=== PATIENT | male | born 1975 | race Caucasian/White ===

== ENCOUNTER 2021-11-18 11:39 | Outpatient (CLI) | payer OTHER, SELFPAY ==
[2021-11-18 14:05] LABS: Chloride* 101 mmol/L (96-114); Potassium* 3.5 mmol/L (3.6-5.1); Sodium* 138 mmol/L (135-149)
[2021-11-18 14:07] LABS: Cholesterol* 211 mg/dL (90-199)
[2021-11-18 14:08] LABS: Blood Urea Nitrogen* 13 mg/dL (5-24); Calcium* 9.7 mg/dL (8.4-10.6); Carbon Dioxide* 30 mmol/L (20-32); Creatinine* 0.6 mg/dL (0.5-1.5); Estimated Glomerular Filt Rate 121 ml/min; Glucose* 92 mg/dL (60-115); Triglycerides* 365 mg/dL (40-149)
[2021-11-18 14:09] LABS: HDL Cholesterol* 44 mg/dL (>=40); LDL Cholesterol Calculated 94 mg/dL (<100)
== END 2021-11-18 11:40 | disposition home or self-care (01) ==
PROVIDERS: PCP Family Medicine; Visit Provider Family Medicine
DX: E11.40 Type 2 diabetes mellitus with diabetic neuropathy, unspecified (principal); I10 Essential (primary) hypertension; E78.5 Hyperlipidemia, unspecified; M10.9 Gout, unspecified; E66.01 Morbid (severe) obesity due to excess calories
CPT/HCPCS: 80048; 80061

== ENCOUNTER 2022-11-24 16:29 | Outpatient (CLI) | payer OTHER, SELFPAY | END 2022-11-24 16:30 | disposition home or self-care (01) | LOC: NFLDREF 16:30 | PROVIDERS: PCP Family Medicine; Visit Provider Family Medicine | DX: E78.5 Hyperlipidemia, unspecified (principal); I10 Essential (primary) hypertension | CPT/HCPCS: 80048; 80061 ==

== ENCOUNTER 2023-01-27 06:52 | Inpatient (IN) | payer OTHER, SELFPAY ==
[2023-01-27] VITALS (17 sets, daily range): BP systolic 126–161; BP diastolic 82–100; PULSE 87–106; RESP 16–20; TEMP 36.2–36.4; O2SAT 92–98; BMI 34.9; BMI 34.1
--- NOTE | 2023-01-27 07:03 | CRLHL7_ITS ---
For Patients: As a result of the Century Cures Act, medical imaging exams and procedure reports are released immediately into your electronic medical record. You may view this report before your referring provider. If you have questions, please contact your health care provider. INDICATION: Right leg pain and swelling. History of hypercoagulable state. TECHNIQUE: Ultrasound venous duplex lower right extremity. Compression venous exam was performed using quintanilla-scale, color Doppler, and spectral Doppler analysis. COMPARISON: None. FINDINGS: Noncompressible echogenic nonocclusive right common femoral vein DVT. Non expansile noncompressible echogenic deep femoral vein DVT. Non expansile noncompressible occlusive proximal, mid and distal superficial femoral vein DVT. Echogenic non expansile nonocclusive popliteal vein DVT. Posterior tibial, peroneal and gastrocnemius deep muscular vein below the knee DVT. The contralateral left common femoral vein is patent. IMPRESSION: Extensive chronic appearing right lower extremity DVT described above. Dictated by Narciso Marie MD @ 01/27/2023 9:07:41 AM (Electronically Signed)
--- NOTE | 2023-01-27 07:43 | ED.GENADULT ---
HPI - General Adult General Chief complaint: Lower Extremity Swelling <Celestino Armstrong MD - Last Filed: 01/29/23 12:48> Stated complaint: right leg painful and swollen <Celestino Armstrong MD - Last Filed: 01/29/23 12:48> Time Seen by Provider: 01/27/23 06:59 <Celestino Armstrong MD - Last Filed: 01/29/23 12:48> History of Present Illness HPI narrative: Patient is a 47-year-old gentleman with history of factor 5 Leiden mutation and multiple blood clots the past who presents with a painful swollen right leg. He has noticed swelling for last 24 hours but it worsened overnight as patient was working. He has had no recent trauma. The pain is dull and located with the swelling inferior to the right knee in the calf. He has had no bruising or bleeding. He has had no cough or shortness of breath. No nausea no vomiting no weakness. Patient is not on blood thinners but does take aspirin 81 mg daily. <Celestino Armstrong MD - Last Filed: 01/29/23 12:48> Related Data Home medications: Home Medications Medication Instructions Recorded Confirmed aspirin 81 mg tablet,delayed 81 mg PO QDAY 11/24/22 01/27/23 release (Adult Aspirin Regimen) insulin glargine 100 unit/mL (3 70 unit subcut HS 01/27/23 01/27/23 mL) subcutaneous pen insulin lispro 100 unit/mL 10 - 30 unit subcut TIDWMEAL 01/27/23 01/27/23 subcutaneous pen Previous Rx's Medication Instructions Recorded flash glucose scanning reader #1 ea 11/14/21 (FreeStyle Yeison 14 Day Clyde) flash glucose sensor (FreeStyle #6 ea 12/27/21 Yeison 14 Day Sensor kit) pen needle, diabetic 32 gauge x #300 ea 11/06/22 (BD Ultra-Fine Sheba Pen Needle) blood-glucose sensor (Dexcom G7 #3 ea 11/24/22 Sensor device) lisinopril 20 1 tab PO DAILY #90 tabs 11/24/22 mg-hydrochlorothiazide 12.5 mg tablet clotrimazole-betamethasone 1 1 applic topical BID #45 grams 12/13/22 %-0.05 % topical cream <Celestino Armstrong MD - Last Filed: 01/29/23 12:48> Allergies/adverse reactions: Allergies Allergy/AdvReac Type Severity Reaction Status Date / Time No Known Drug Allergies Allergy Verified 01/27/23 06:56 <Celestino Armstrong MD - Last Filed: 01/29/23 12:48> Review of Systems Status of ROS: Reports: 10 or more systems reviewed and unremarkable except as noted in History and below <Celestino Armstrong MD - Last Filed: 01/29/23 12:48> [facility] Medical History: Medical History (Updated 01/27/23 @ 20:42 by Manjinder De La Torre MD) Pulmonary embolism ?I26.99 - Other pulmonary embolism without acute cor pulmonale (ICD-10) DVT (deep venous thrombosis) ?I82.409 - Acute embolism and thrombosis of unspecified deep veins of unspecified lower extremity (ICD-10) Type 2 diabetes mellitus (2012) ?E11.9 - Type 2 diabetes mellitus without complications (ICD-10) Rupture of appendix (02/2019) ?K35.32 - Acute appendicitis with perforation and localized peritonitis, without abscess (ICD-10) Obstructive sleep apnea syndrome ?G47.33 - Obstructive sleep apnea (adult) (pediatric) (ICD-10) Morbid obesity with body mass index (BMI) of 40.0 to 44.9 in adult ?E66.01 - Morbid (severe) obesity due to excess calories (ICD-10) ?Z68.41 - Body mass index [BMI] 40.0-44.9, adult (ICD-10) Microalbuminuria ?R80.9 - Proteinuria, unspecified (ICD-10) Hypertension ?I10 - Essential (primary) hypertension (ICD-10) Hyperlipidemia ?E78.5 - Hyperlipidemia, unspecified (ICD-10) Gout ?M10.9 - Gout, unspecified (ICD-10) Gastroesophageal reflux disease (08/30/12) ?K21.9 - Gastro-esophageal reflux disease without esophagitis (ICD-10) Factor V Leiden mutation (12/30/09) ?D68.51 - Activated protein C resistance (ICD-10) Diabetic neuropathy ?E11.40 - Type 2 diabetes mellitus with diabetic neuropathy, unspecified (ICD-10) Deep vein thrombosis (DVT) of lower extremity (12/21/09) ?I82.409 - Acute embolism and thrombosis of unspecified deep veins of unspecified lower extremity (ICD-10) <Celestino Armstrong MD - Last Filed: 01/29/23 12:48> Surgical History: Surgical History (Updated 01/27/23 @ 17:20 by Bernardo Magdaleno MD) History of appendectomy ?Z90.49 - Acquired absence of other specified parts of digestive tract (ICD-10) <Celestino Armstrong MD - Last Filed: 01/29/23 12:48> Family History: Family History Family/Other Stroke Family/Other Prostate cancer Mother Diabetes Maternal Grandmother Diabetes <Celestino Armstrong MD - Last Filed: 01/29/23 12:48> Social History: Social History (Updated 01/27/23 @ 17:21 by Bernardo Magdaleno MD) Narrative: , 3 kids, non-smoker, rare alcohol use. 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 Code status is full. What is your current living situation?: I presently have a place to live Problems where you live: no known problems Problems where you live details: NO In the past 12 months, utilities in danger of being shut off: no In past 12 months, lack of transportation kept you from medical appts, meetings, work, or getting things needed for daily living: no In the past 12 mos, have been you worried that your food would run out before you had money to buy more?: never true In the past 12 mos, the food you bought just didn't last and you didn't have money to buy more?: never true Highest level of school completed/degree received: high school graduate Smoking Status: Never smoker How often do you have a drink containing alcohol: monthly or less AUDIT-C Alcohol total score: 1 Non-prescribed substance use: denies use Caffeine: Yes How often does anyone, including family, friends and others, physically hurt you: never How often does anyone, including family, friends and others, insult or talk down to you: never How often does anyone, including family, friends and others, threaten you with harm: never How often does anyone, including family, friends and others, scream or curse at you: never Little interest or pleasure in doing things: not at all Feeling down, depressed, or hopeless: not at all service: No <Celestino Armstrong MD - Last Filed: 01/29/23 12:48> Exam Narrative: Exam Narrative: EXAM GENERAL: Patient appears comfortable and well. THYROID: no thyroid nodules or thyromegaly. LYMPH: No supraclavicular or cervical lymphadenopathy. SKIN: Visible skin seen during exam normal or with benign process only. EXT: Mild erythema as well as significant swelling in the right lower extremity extending from the ankle to just above the right knee. No skin breakdown. HEART: Regular rate and rhythm with no murmurs, rubs, or gallops. LUNGS: Clear to auscultation bilaterally with no crackles or wheezes. ABD: Soft, non tender, non distended. PSYCH: Good eye contact, speech is not pressured. <Celestino Armstrong MD - Last Filed: 01/29/23 12:48> Const: Vital Signs, click to edit/add: Vital Signs - 24 hr 01/27/23 06:56 01/27/23 08:59 01/27/23 11:09 Temperature 97.6 F Pulse Rate 95 Pulse Rate [Pulse Oximeter] 103 H 97 Respiratory Rate 20 16 Blood Pressure Blood Pressure [Ri ght Upper Arm] 159/93 H 132/82 Pulse Oximetry 96 95 97 Oxygen Delivery Me thod Room Air Room Air 01/27/23 11:10 01/27/23 11:30 01/27/23 11:32 Temperature Pulse Rate 95 105 H 102 H Pulse Rate [Pulse Oximeter] Respiratory Rate Blood Pressure 139/92 H 161/100 H Blood Pressure [Ri ght Upper Arm] Pulse Oximetry 96 94 96 Oxygen Delivery Me thod 01/27/23 11:33 01/27/23 12:00 01/27/23 12:02 Temperature Pulse Rate 103 H 96 97 Pulse Rate [Pulse Oximeter] Respiratory Rate Blood Pressure 144/93 H Blood Pressure [Ri ght Upper Arm] Pulse Oximetry 96 95 95 Oxygen Delivery Me thod 01/27/23 12:30 01/27/23 12:31 01/27/23 13:00 Temperature Pulse Rate 96 94 104 H Pulse Rate [Pulse Oximeter] Respiratory Rate Blood Pressure 135/90 H Blood Pressure [Ri ght Upper Arm] Pulse Oximetry 94 92 95 Oxygen Delivery Me thod 01/27/23 13:02 Temperature Pulse Rate 106 H Pulse Rate [Pulse Oximeter] Respiratory Rate Blood Pressure 131/97 H Blood Pressure [Ri ght Upper Arm] Pulse Oximetry 96 Oxygen Delivery Me thod <Celestino Armstrong MD - Last Filed: 01/29/23 12:48> Vital Signs, click to edit/add: Vital Signs - 24 hr 01/27/23 06:56 01/27/23 08:59 01/27/23 11:09 Temperature 97.6 F Pulse Rate 95 Pulse Rate [Pulse Oximeter] 103 H 97 Respiratory Rate 20 16 Blood Pressure Blood Pressure [Ri ght Upper Arm] 159/93 H 132/82 Pulse Oximetry 96 95 97 Oxygen Delivery Me thod Room Air Room Air 01/27/23 11:10 01/27/23 11:30 01/27/23 11:32 Temperature Pulse Rate 95 105 H 102 H Pulse Rate [Pulse Oximeter] Respiratory Rate Blood Pressure 139/92 H 161/100 H Blood Pressure [Ri ght Upper Arm] Pulse Oximetry 96 94 96 Oxygen Delivery Me thod 01/27/23 11:33 01/27/23 12:00 01/27/23 12:02 Temperature Pulse Rate 103 H 96 97 Pulse Rate [Pulse Oximeter] Respiratory Rate Blood Pressure 144/93 H Blood Pressure [Ri ght Upper Arm] Pulse Oximetry 96 95 95 Oxygen Delivery Me thod 01/27/23 12:30 01/27/23 12:31 01/27/23 13:00 Temperature Pulse Rate 96 94 104 H Pulse Rate [Pulse Oximeter] Respiratory Rate Blood Pressure 135/90 H Blood Pressure [Ri ght Upper Arm] Pulse Oximetry 94 92 95 Oxygen Delivery Me thod 01/27/23 13:02 Temperature Pulse Rate 106 H Pulse Rate [Pulse Oximeter] Respiratory Rate Blood Pressure 131/97 H Blood Pressure [Ri ght Upper Arm] Pulse Oximetry 96 Oxygen Delivery Me thod <Manjinder De La Torre MD - Last Filed: 01/27/23 20:43> Course Course ED Course: Patient seen examined. Duplex of the right lower extremity ordered. <Celestino Armstrong MD - Last Filed: 01/29/23 12:48> Reevaluation(s) Reevaluation #1: Dr. De La Torre assumed care of this patient at 8:00 a.m. -shift change. Patient is a 47-year-old male with a history of factor 5 Leiden and multiple previous blood clots. He presents with painful swelling of his right lower leg. Recurrent DVT is suspected. Lower extremity ultrasound has been ordered and is pending at the time of sign-out. Low suspicion for cellulitis, infection, abscess. No evidence for neurovascular compromise. No history of trauma to require x-rays. <Manjinder De La Torre MD - Last Filed: 01/27/23 20:43> Reevaluation #2: Recheck-DVT ultrasound does confirm an extensive DVT in the right leg that extends all the way from the proximal and the visualized leg down through the calf. I re-evaluated the patient. He was having some swelling the leg but was neurovascularly intact. Really not having a lot of pain. He also endorsed some shortness of breath for the past few days. We elected to go ahead with CT scan of his lungs to look for PE with also CT abdomen pelvis to determine the proximal extent of his right lower extremity DVT. <Manjinder De La Torre MD - Last Filed: 01/27/23 20:43> Reevaluation #3: Recheck-CT scan does confirm bilateral pulmonary emboli with a moderate clot burden as per discussion with Radiology. At this point his blood pressure and oxygen are stable. This is not a ?massive? PE. No indication for thrombolytics. Will initiate anticoagulation with heparin. <Manjinder De La Torre MD - Last Filed: 01/27/23 20:43> Additional Reevaluation(s): Recheck-CT scan abdomen pelvis came back. It does show evidence that the right lower extremity DVT extends into the right common iliac vein but not into the IVC or down the left. Discussed with interventional Radiology, Dr. Maxine reaves from [facility]. He reviewed the patient's imaging. At this point no indication for emergent thrombectomy for the PE but there may be indication for thrombectomy for the DVT given its extent, to avoid post thrombotic syndrome. He would agree with heparinization for now and transferred to [place] when a bed is available. If he can be transferred intervention Radiology would consult to determine if he would benefit from thrombectomy. Unfortunately there are no open beds at [facility]. He has been placed on the wait list. We also contacted other facilities including [facility], [facility], [facility], [facility], [facility] There are no open beds. Will initiate the patient on heparin bolus and drip here in the ER. Will admit the patient to the hospitalist service here in [place] where he can be medically managed until a bed opens up at [place]. At that time he will be transferred for IR consultation. Discussed with Dr. Ruth, who graciously agrees to admit. Clinical impression: 1. Right lower extremity DVT 2. Pulmonary embolism 3. Factor 5 Leiden <Manjinder De La Torre MD - Last Filed: 01/27/23 20:43> Vital Signs Vital signs: Initial Vital Signs Temperature 97.6 F 01/27/23 06:56 Temperature Source Temporal Artery Scan 01/27/23 06:56 Pulse Rate 103 H 01/27/23 06:56 Respiratory Rate 20 01/27/23 06:56 Blood Pressure 159/93 H 01/27/23 06:56 Blood Pressure Mean 115 H 01/27/23 06:56 Pulse Oximetry 96 01/27/23 06:56 Oxygen Delivery Method Room Air 01/27/23 06:56 Vital Signs Temperature 97.6 F 01/27/23 06:56 Pulse Rate 103 H 01/27/23 06:56 Respiratory Rate 20 01/27/23 06:56 Blood Pressure 159/93 H 01/27/23 06:56 Pulse Oximetry 96 01/27/23 06:56 Oxygen Delivery Method Room Air 01/27/23 06:56 Temperature 97.1 F L 01/27/23 19:00 Pulse Rate 87 01/27/23 19:00 Respiratory Rate 16 01/27/23 19:00 Blood Pressure 126/83 01/27/23 19:00 Pulse Oximetry 94 01/27/23 19:00 Oxygen Delivery Method Room Air 01/27/23 15:35 <Celestino Armstrong MD - Last Filed: 01/29/23 12:48> Initial Vital Signs Temperature 97.6 F 01/27/23 06:56 Temperature Source Temporal Artery Scan 01/27/23 06:56 Pulse Rate 103 H 01/27/23 06:56 Respiratory Rate 20 01/27/23 06:56 Blood Pressure 159/93 H 01/27/23 06:56 Blood Pressure Mean 115 H 01/27/23 06:56 Pulse Oximetry 96 01/27/23 06:56 Oxygen Delivery Method Room Air 01/27/23 06:56 Vital Signs Temperature 97.6 F 01/27/23 06:56 Pulse Rate 103 H 01/27/23 06:56 Respiratory Rate 20 01/27/23 06:56 Blood Pressure 159/93 H 01/27/23 06:56 Pulse Oximetry 96 01/27/23 06:56 Oxygen Delivery Method Room Air 01/27/23 06:56 Temperature 97.1 F L 01/27/23 19:00 Pulse Rate 87 01/27/23 19:00 Respiratory Rate 16 01/27/23 19:00 Blood Pressure 126/83 01/27/23 19:00 Pulse Oximetry 94 01/27/23 19:00 Oxygen Delivery Method Room Air 01/27/23 15:35 <Manjinder De La Torre MD - Last Filed: 01/27/23 20:43> Medical Decision Making Lab Data Labs: Lab Results 01/27/23 01/27/23 Range/Units 09:50 09:55 WBC 9.87 (4.50-11.00) K/uL RBC 5.42 (4.30-5.90) m/uL Hgb 15.1 (13.5-17.5) gm/dL Hct 43.8 (37.0-53.0) % MCV 81 (80-100) fL MCH 28 (26-34) pg MCHC 35 (32-36) gm/dL RDW Coeff of Joslyn 12.0 (11.5-15.5) % Plt Count 187 (140-440) K/uL Neut % (Auto) 50.1 (42.0-72.0) % Lymph % (Auto) 33.8 (20-44) % Bradley % (Auto) 8.0 (0.0-11.0) % Eos % (Auto) 7.4 H (0.0-7.0) % Baso % (Auto) 0.4 (0.0-3.0) % Neut # (Auto) 4.94 (1.7-7.0) K/uL Lymph # (Auto) 3.34 H (0.90-2.90) K/uL Bradley # (Auto) 0.80 (0.00-0.90) K/UL Eos # (Auto) 0.70 H (0.00-0.50) K/uL Baso # (Auto) 0.04 (0.00-0.30) K/uL Abs Immat Gran (auto) 0.03 (0.00-0.30) K/uL Imm/Tot Granulo (auto) 0.3 % INR 0.99 (0.91-1.10) APTT 23 (23-33) Seconds Sodium 134 L (135-149) mmol/L Potassium 4.8 (3.6-5.1) mmol/L Chloride 94 L (96-114) mmol/L Carbon Dioxide 27 (20-32) mmol/L Anion Gap 13 (7-15) mEq/L BUN 25 H (5-24) mg/dL Creatinine 0.7 (0.5-1.5) mg/dL Estimated Creat Clear 151.68 Estimated GFR 114 ml/min Glucose 331 H (60-115) mg/dL Calcium 9.4 (8.4-10.6) mg/dL Troponin I < 0.01 L (0.01-0.04) ng/mL SARS-CoV-2 (PCR) Negative SARS-CoV-2 (Negative) Influenza Type A (PCR) Negative PCR FLU A (Negative) Influenza Type B (PCR) Negative PCR FLU B (Negative) RSV (PCR) Negative PCR RSV (Negative) <Celestino Armstrong MD - Last Filed: 01/29/23 12:48> Lab Results 01/27/23 01/27/23 Range/Units 09:50 09:55 WBC 9.87 (4.50-11.00) K/uL RBC 5.42 (4.30-5.90) m/uL Hgb 15.1 (13.5-17.5) gm/dL Hct 43.8 (37.0-53.0) % MCV 81 (80-100) fL MCH 28 (26-34) pg MCHC 35 (32-36) gm/dL RDW Coeff of Joslyn 12.0 (11.5-15.5) % Plt Count 187 (140-440) K/uL Neut % (Auto) 50.1 (42.0-72.0) % Lymph % (Auto) 33.8 (20-44) % Bradley % (Auto) 8.0 (0.0-11.0) % Eos % (Auto) 7.4 H (0.0-7.0) % Baso % (Auto) 0.4 (0.0-3.0) % Neut # (Auto) 4.94 (1.7-7.0) K/uL Lymph # (Auto) 3.34 H (0.90-2.90) K/uL Bradley # (Auto) 0.80 (0.00-0.90) K/UL Eos # (Auto) 0.70 H (0.00-0.50) K/uL Baso # (Auto) 0.04 (0.00-0.30) K/uL Abs Immat Gran (auto) 0.03 (0.00-0.30) K/uL Imm/Tot Granulo (auto) 0.3 % INR 0.99 (0.91-1.10) APTT 23 (23-33) Seconds Sodium 134 L (135-149) mmol/L Potassium 4.8 (3.6-5.1) mmol/L Chloride 94 L (96-114) mmol/L Carbon Dioxide 27 (20-32) mmol/L Anion Gap 13 (7-15) mEq/L BUN 25 H (5-24) mg/dL Creatinine 0.7 (0.5-1.5) mg/dL Estimated Creat Clear 151.68 Estimated GFR 114 ml/min Glucose 331 H (60-115) mg/dL Calcium 9.4 (8.4-10.6) mg/dL Troponin I < 0.01 L (0.01-0.04) ng/mL SARS-CoV-2 (PCR) Negative SARS-CoV-2 (Negative) Influenza Type A (PCR) Negative PCR FLU A (Negative) Influenza Type B (PCR) Negative PCR FLU B (Negative) RSV (PCR) Negative PCR RSV (Negative) <Manjinder De La Torre MD - Last Filed: 01/27/23 20:43> Discharge Plan Discharge Clinical Impression: DVT (deep venous thrombosis), Pulmonary embolism <Celestino Armstrong MD - Last Filed: 01/29/23 12:48> Oxygen: No <Celestino Armstrong MD - Last Filed: 01/29/23 12:48> No <Manjinder De La Torre MD - Last Filed: 01/27/23 20:43>
--- NOTE | 2023-01-27 09:31 | CRLHL7_ITS ---
For Patients: As a result of the Century Cures Act, medical imaging exams and procedure reports are released immediately into your electronic medical record. You may view this report before your referring provider. If you have questions, please contact your health care provider. INDICATION: DVT. Shortness of breath. TECHNIQUE: CT chest PE was acquired with 95 cc Isovue 370 IV contrast. COMPARISON: None. FINDINGS: Heart and vasculature: Positive for bilateral pulmonary arterial emboli including a thin saddle embolus at the bifurcation of the pulmonary trunk with proximal bilateral multilobar multisegmental pulmonary emboli. Normal RV:LV ratio (0.9). No flattening of the interventricular septum to indicate right ventricular strain. Lungs and pleura: No evidence of pulmonary infarct. Benign left upper lobe calcified granuloma. No pleural effusion. Lymph nodes/mediastinum: No mediastinal, hilar, or axillary adenopathy. Chest wall: No masses. Upper abdomen: Please refer to the separate abdominal CT report from the same day. Bones: Unremarkable for age. IMPRESSION: Positive for pulmonary embolism including a nonocclusive saddle embolus and bilateral multilobar multisegmental proximal pulmonary emboli. Moderate clot burden. No signs of right ventricular strain. Discussed with Dr. De La Torre at 10:51 a.m. on 01/27/2023. Please note that all CT scans at this facility use dose modulation, iterative reconstruction, and/or weight-based dosing when appropriate to reduce radiation dose to as low as reasonably achievable. Dictated by Narciso Marie MD @ 01/27/2023 10:55:57 AM (Electronically Signed)
--- NOTE | 2023-01-27 09:31 | CRLHL7_ITS ---
For Patients: As a result of the Century Cures Act, medical imaging exams and procedure reports are released immediately into your electronic medical record. You may view this report before your referring provider. If you have questions, please contact your health care provider. INDICATION: DVT. Shortness of breath. Concern for possible iliac and/or inferior vena cava venous thrombosis. TECHNIQUE: CT abdomen and pelvis acquired with 150 cc Isovue 370 IV contrast. COMPARISON: None. FINDINGS: Lower chest: Right middle lobe proximal multisegmental and bilateral lower lobe proximal multisegmental pulmonary arterial filling defects represent pulmonary emboli as demonstrated on the separate CT pulmonary angiogram performed today. Please refer to that report. Liver: Unremarkable. Normal in size and attenuation. No suspicious masses. Gallbladder and bile ducts: Unremarkable. No stones or inflammation. No biliary dilatation. Pancreas: Unremarkable. No mass or inflammation. Spleen: Unremarkable. Normal in size. No masses. Adrenal glands: Unremarkable. No nodules. Kidneys: Unremarkable. No suspicious masses, stones, or hydronephrosis. Too small to characterize round circumscribed homogeneous hypodense focus in the posterior interpolar left renal cortex consistent with a Bosniak 2 benign renal cysts. GI tract: Unremarkable. Normal in caliber. No sign of mass or inflammation. Appendectomy. Vasculature: Filling defects within the right common iliac, external iliac, common femoral and proximal superficial femoral veins are consistent with DVT. Abdominal aorta is normal in caliber. Mesenteric arteries are patent. Lymph nodes: No lymphadenopathy. Peritoneum/Abdominal Wall: Unremarkable. No sign of mass or infiltration. No free air or significant free fluid. Pelvis: Unremarkable. Bones: Unremarkable for age. IMPRESSION: Right common iliac, external iliac, common femoral and proximal superficial femoral vein DVT. Known bilateral pulmonary emboli. Discussed with Dr. De La Torre at 11 a.m. [employer] on 01/27/2023. Please note that all CT scans at this facility use dose modulation, iterative reconstruction, and/or weight-based dosing when appropriate to reduce radiation dose to as low as reasonably achievable. Dictated by Narciso Marie MD @ 01/27/2023 11:05:41 AM (Electronically Signed)
[2023-01-27 10:03] LABS: Basophils Absolute Auto 0.04 K/uL (0.00-0.30); Basophils Percent Auto 0.4 % (0.0-3.0); Eosinophils Percent Auto 7.4 % (0.0-7.0); Hematocrit 43.8 % (37.0-53.0); Hemoglobin* 15.1 gm/dL (13.5-17.5); Immature Granulocytes Abs Auto 0.03 K/uL (0.00-0.30); Immature Granulocytes Pct Auto 0.3 %; Lymphocytes Absolute Auto 3.34 K/uL (0.90-2.90); Lymphocytes Percent Auto 33.8 % (20-44); Mean Corpuscular HGB Conc 35 gm/dL (32-36); Mean Corpuscular Hemoglobin 28 pg (26-34); Mean Corpuscular Volume 81 fL (80-100); Neutrophils Absolute Auto 4.94 K/uL (1.7-7.0); Neutrophils Percent Auto 50.1 % (42.0-72.0); Platelet Count* 187 K/uL (140-440); Red Blood Count 5.42 m/uL (4.30-5.90); White Blood Count* 9.87 K/uL (4.50-11.00)
[2023-01-27 10:21] LABS: Slide Review Reflex No
[2023-01-27 10:41] LABS: Chloride* 94 mmol/L (96-114); Potassium* 4.8 mmol/L (3.6-5.1); Sodium* 134 mmol/L (135-149)
[2023-01-27 10:43] LABS: INR 0.99 (0.91-1.10); Prothrombin Time 13.7 Seconds
[2023-01-27 10:44] LABS: Anion Gap 13 mEq/L (7-15); Blood Urea Nitrogen* 25 mg/dL (5-24); Calcium* 9.4 mg/dL (8.4-10.6); Carbon Dioxide* 27 mmol/L (20-32); Creatinine* 0.7 mg/dL (0.5-1.5); Est. Creatinine Clearance* 151.68; Estimated Glomerular Filt Rate 114 ml/min; Glucose* 331 mg/dL (60-115)
[2023-01-27 10:44] LABS: PCR FLU A Negative PCR FLU A (Negative); PCR FLU B Negative PCR FLU B (Negative); PCR RSV Negative PCR RSV (Negative)
[2023-01-27 10:56] LABS: Partial Thromboplastin Time* 23 Seconds (23-33)
[2023-01-27 10:58] LABS: SARS PCR* Negative SARS-CoV-2 (Negative)
[2023-01-27] MEDS: HEPARIN 5,000 UNIT/0.5 ML INJ 9900 UNIT IVP (11:19)
[2023-01-27] MEDS: HEPARIN 25,000 UNIT/500 ML BAG 30 UNIT IV (11:23)
[2023-01-27 11:53] LABS: Troponin I* < 0.01 ng/mL (0.01-0.04)
[2023-01-27] MEDS: ACETAMINOPHEN 325 MG TABLET 650 MG PO (17:04)
--- NOTE | 2023-01-27 17:17 | P.IMHP_ITS ---
Hospitalist- H&P: HPI History of Present Illness Date Seen: 01/27/23 Chief complaint: right leg painful and swollen Narrative: Roderick Milian is a 47 year old male with diabetes, hypertension, sleep apnea and previous history of DVT is admitted to the hospital with shortness of breath for 4 or 5 days and 1 day of right leg pain and swelling. Patient reports that he was in his usual state of health until Sunday or Sunday of this week, 4-5 days prior to admission when he noted that he was feeling a little more short of breath. He also had a couple days where he had an upset stomach and a little nonbloody diarrhea. Yesterday he noted right leg pain at work and it was getting worse so he came to the emergency room this morning for evaluation. About a decade ago he had 2 separate episodes of left leg DVT. He was treated with warfarin for about 6 months. It was then stopping is placed on aspirin. He was subsequent the diagnostic with factor 5 Leiden mutation. He is unsure if he has heterozygous or homozygous state. Both his parents have factor 5 Leiden mutation and his mother he is on lifelong anticoagulation. He has not had any chest pain, syncope, fever. Review of Systems Narrative: Review of systems is negative except as noted above [facility] Medical History (Updated 01/27/23 @ 17:27 by Bernardo Magdaleno MD) Pulmonary embolism ?I26.99 - Other pulmonary embolism without acute cor pulmonale (ICD-10) DVT (deep venous thrombosis) ?I82.409 - Acute embolism and thrombosis of unspecified deep veins of unspecified lower extremity (ICD-10) Type 2 diabetes mellitus (2012) ?E11.9 - Type 2 diabetes mellitus without complications (ICD-10) Rupture of appendix (02/2019) ?K35.32 - Acute appendicitis with perforation and localized peritonitis, without abscess (ICD-10) Obstructive sleep apnea syndrome ?G47.33 - Obstructive sleep apnea (adult) (pediatric) (ICD-10) Morbid obesity with body mass index (BMI) of 40.0 to 44.9 in adult ?E66.01 - Morbid (severe) obesity due to excess calories (ICD-10) ?Z68.41 - Body mass index [BMI] 40.0-44.9, adult (ICD-10) Microalbuminuria ?R80.9 - Proteinuria, unspecified (ICD-10) Hypertension ?I10 - Essential (primary) hypertension (ICD-10) Hyperlipidemia ?E78.5 - Hyperlipidemia, unspecified (ICD-10) Gout ?M10.9 - Gout, unspecified (ICD-10) Gastroesophageal reflux disease (08/30/12) ?K21.9 - Gastro-esophageal reflux disease without esophagitis (ICD-10) Factor V Leiden mutation (12/30/09) ?D68.51 - Activated protein C resistance (ICD-10) Diabetic neuropathy ?E11.40 - Type 2 diabetes mellitus with diabetic neuropathy, unspecified (ICD-10) Deep vein thrombosis (DVT) of lower extremity (12/21/09) ?I82.409 - Acute embolism and thrombosis of unspecified deep veins of unspecified lower extremity (ICD-10) Surgical History (Updated 01/27/23 @ 17:20 by Bernardo Magdaleno MD) History of appendectomy ?Z90.49 - Acquired absence of other specified parts of digestive tract (ICD- 10) Family History Family/Other Stroke Family/Other Prostate cancer Mother Diabetes Maternal Grandmother Diabetes Social History (Updated 01/27/23 @ 17:21 by Bernardo Magdaleno MD) Narrative: , 3 kids, non-smoker, rare alcohol use. 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 Code status is full. What is your current living situation?: I presently have a place to live Problems where you live: no known problems Problems where you live details: NO In the past 12 months, utilities in danger of being shut off: no In past 12 months, lack of transportation kept you from medical appts, meetings, work, or getting things needed for daily living: no In the past 12 mos, have been you worried that your food would run out before you had money to buy more?: never true In the past 12 mos, the food you bought just didn't last and you didn't have money to buy more?: never true Highest level of school completed/degree received: high school graduate Smoking Status: Never smoker How often do you have a drink containing alcohol: monthly or less AUDIT-C Alcohol total score: 1 Non-prescribed substance use: denies use Caffeine: Yes How often does anyone, including family, friends and others, physically hurt you : never How often does anyone, including family, friends and others, insult or talk down to you: never How often does anyone, including family, friends and others, threaten you with harm: never How often does anyone, including family, friends and others, scream or curse at you: never Little interest or pleasure in doing things: not at all Feeling down, depressed, or hopeless: not at all service: No Meds Home Medications and Allergies Home Medications Medication Instructions Recorded Confirmed Type aspirin 81 mg tablet,delayed 81 mg PO QDAY 11/24/22 01/27/23 History release (Adult Aspirin Regimen) insulin glargine 100 unit/mL (3 70 unit subcut HS 01/27/23 01/27/23 History mL) subcutaneous pen insulin lispro 100 unit/mL 10 - 30 unit subcut TIDWMEAL 01/27/23 01/27/23 History subcutaneous pen Allergies Allergy/AdvReac Type Severity Reaction Status Date / Time No Known Drug Allergies Allergy Verified 01/27/23 06:56 Exam Narrative: Exam Narrative: He is alert and appears in no distress. He gives his own history. Eyes normal. Oropharynx with small airway. Neck is supple without mass or adenopathy. Respirations are clear to auscultation. Breathing is unlabored. Cardiovascular: S1, S2, regular rate and rhythm. No murmur gallop or rub. Abdomen: Bowel sounds active. Abdomen is soft without tenderness or mass. Extremities are examined. Lower extremities notable for the right lower extremity having moderate edema and some warmth and minimal tenderness over the thigh and calf. Left lower extremity is with minimal edema and no tenderness or warmth. He moves all 4 extremities well. Const: Vital Signs, click to edit/add: Vital Signs - 24 hr 01/27/23 06:56 01/27/23 08:59 01/27/23 11:09 Temperature 97.6 F Pulse Rate 95 Pulse Rate [Apical ] Pulse Rate [Pulse Oximeter] 103 H 97 Respiratory Rate 20 16 Blood Pressure Blood Pressure [Le ft Arm] Blood Pressure [Ri ght Upper Arm] 159/93 H 132/82 Pulse Oximetry 96 95 97 Oxygen Delivery Me thod Room Air Room Air 01/27/23 11:10 01/27/23 11:30 01/27/23 11:32 Temperature Pulse Rate 95 105 H 102 H Pulse Rate [Apical ] Pulse Rate [Pulse Oximeter] Respiratory Rate Blood Pressure 139/92 H 161/100 H Blood Pressure [Le ft Arm] Blood Pressure [Ri ght Upper Arm] Pulse Oximetry 96 94 96 Oxygen Delivery Me thod 01/27/23 11:33 01/27/23 12:00 01/27/23 12:02 Temperature Pulse Rate 103 H 96 97 Pulse Rate [Apical ] Pulse Rate [Pulse Oximeter] Respiratory Rate Blood Pressure 144/93 H Blood Pressure [Le ft Arm] Blood Pressure [Ri ght Upper Arm] Pulse Oximetry 96 95 95 Oxygen Delivery Me thod 01/27/23 12:30 01/27/23 12:31 01/27/23 13:00 Temperature Pulse Rate 96 94 104 H Pulse Rate [Apical ] Pulse Rate [Pulse Oximeter] Respiratory Rate Blood Pressure 135/90 H Blood Pressure [Le ft Arm] Blood Pressure [Ri ght Upper Arm] Pulse Oximetry 94 92 95 Oxygen Delivery Tx thod 01/27/23 13:02 01/27/23 14:52 01/27/23 14:52 Temperature 97.3 F L Pulse Rate 106 H Pulse Rate [Apical ] 98 Pulse Rate [Pulse Oximeter] Respiratory Rate 18 Blood Pressure 131/97 H Blood Pressure [Le ft Arm] 130/95 H Blood Pressure [Ri ght Upper Arm] Pulse Oximetry 96 98 98 [facility] 01/27/23 15:00 01/27/23 15:35 Temperature 97.1 F L Pulse Rate 87 Pulse Rate [Apical ] 87 Pulse Rate [Pulse Oximeter] Respiratory Rate 18 Blood Pressure Blood Pressure [Le ft Arm] 126/83 Blood Pressure [Ri ght Upper Arm] Pulse Oximetry 94 Oxygen Delivery Me thod Room Air Documenting provider has reviewed patient's vital signs: yes Hospitalist - H&P: Result Labs Labs: Short CBC 01/27/23 Range/Units 09:55 WBC 9.87 (4.50-11.00) K/uL Hgb 15.1 (13.5-17.5) gm/dL Hct 43.8 (37.0-53.0) % Plt Count 187 (140-440) K/uL BMP 01/27/23 09:55 Sodium 134 L Potassium 4.8 Chloride 94 L Carbon Dioxide 27 BUN 25 H Creatinine 0.7 Glucose 331 H Calcium 9.4 Cardiac Enzymes 01/27/23 Range/Units 09:55 Troponin I < 0.01 L (0.01-0.04) ng/mL Imaging CT scan - chest: Radiologist's impression: INDICATION: DVT. Shortness of breath. TECHNIQUE: CT chest PE was acquired with 95 cc Isovue 370 IV contrast. COMPARISON: None. FINDINGS: Heart and vasculature: Positive for bilateral pulmonary arterial emboli including a thin saddle embolus at the bifurcation of the pulmonary trunk with proximal bilateral multilobar multisegmental pulmonary emboli. Normal RV:LV ratio (0.9). No flattening of the interventricular septum to indicate right ventricular strain. Lungs and pleura: No evidence of pulmonary infarct. Benign left upper lobe calcified granuloma. No pleural effusion. Lymph nodes/mediastinum: No mediastinal, hilar, or axillary adenopathy. Chest wall: No masses. Upper abdomen: Please refer to the separate abdominal CT report from the same day. Bones: Unremarkable for age. IMPRESSION: Positive for pulmonary embolism including a nonocclusive saddle embolus and bilateral multilobar multisegmental proximal pulmonary emboli. Moderate clot burden. No signs of right ventricular strain. Discussed with Dr. De La Torre at 10:51 a[address]m. on 01/27/2023. CT scan - abdomen: Radiologist's impression: NDICATION: DVT. Shortness of breath. Concern for possible iliac and/or inferior vena cava venous thrombosis. TECHNIQUE: CT abdomen and pelvis acquired with 150 cc Isovue 370 IV contrast. COMPARISON: None. FINDINGS: Lower chest: Right middle lobe proximal multisegmental and bilateral lower lobe proximal multisegmental pulmonary arterial filling defects represent pulmonary emboli as demonstrated on the separate CT pulmonary angiogram performed today. Please refer to that report. Liver: Unremarkable. Normal in size and attenuation. No suspicious masses. Gallbladder and bile ducts: Unremarkable. No stones or inflammation. No biliary dilatation. Pancreas: Unremarkable. No mass or inflammation. Spleen: Unremarkable. Normal in size. No masses. Adrenal glands: Unremarkable. No nodules. Kidneys: Unremarkable. No suspicious masses, stones, or hydronephrosis. Too small to characterize round circumscribed homogeneous hypodense focus in the posterior interpolar left renal cortex consistent with a Bosniak 2 benign renal cysts. GI tract: Unremarkable. Normal in caliber. No sign of mass or inflammation. Appendectomy. Vasculature: Filling defects within the right common iliac, external iliac, common femoral and proximal superficial femoral veins are consistent with DVT. Abdominal aorta is normal in caliber. Mesenteric arteries are patent. Lymph nodes: No lymphadenopathy. Peritoneum/Abdominal Wall: Unremarkable. No sign of mass or infiltration. No free air or significant free fluid. Pelvis: Unremarkable. Bones: Unremarkable for age. IMPRESSION: Right common iliac, external iliac, common femoral and proximal superficial femoral vein DVT. Known bilateral pulmonary emboli. Venous US: Radiologist's impression: NDICATION: Right leg pain and swelling. History of hypercoagulable state. TECHNIQUE: Ultrasound venous duplex lower right extremity. Compression venous exam was performed using quintanilla-scale, color Doppler, and spectral Doppler analysis. COMPARISON: None. FINDINGS: Noncompressible echogenic nonocclusive right common femoral vein DVT. Non expansile noncompressible echogenic deep femoral vein DVT. Non expansile noncompressible occlusive proximal, mid and distal superficial femoral vein DVT. Echogenic non expansile nonocclusive popliteal vein DVT. Posterior tibial, peroneal and gastrocnemius deep muscular vein below the knee DVT. The contralateral left common femoral vein is patent. IMPRESSION: Extensive chronic appearing right lower extremity DVT described above. Assessment and Plan Assessment and plan (1) DVT (deep venous thrombosis): Problem comment: Extensive DVT. Specialists at [facility] recommended thrombectomy. He is on the waiting list for this. Recommend lifelong anticoagulation Status: Acute (2) Pulmonary embolism: Problem comment: Pulmonary emboli as noted above. Treat with anticoagulation. Normal vital signs. Recommend lifelong anticoagulation Status: Acute (3) Factor V Leiden mutation: Problem comment: Recommend lifelong anticoagulation Status: Acute (4) Type 2 diabetes mellitus: Problem comment: Monitor while in hospital. Patient requests self management with mealtime dosing of insulin Status: Acute (5) Obstructive sleep apnea syndrome: Problem comment: CPAP Status: Acute (6) Morbid obesity with body mass index (BMI) of 40.0 to 44.9 in adult: Status: Acute Plan Patient is admitted to the hospital for management of DVT and PE. He was started on heparin for this. Pending transfer for thrombectomy. At appropriate time transition to oral anticoagulant. Discussed this in detail with patient. Also discussed recommendation that he be lifelong anticoagulated due to high risk status and recurrences. Total time spent today is 70 minutes, 50 minutes in coordination of care discussing with patient and and other providers ongoing evaluation management of DVT and PE
[2023-01-27 17:53] LABS: Partial Thromboplastin Time* 45 Seconds (23-33)
--- NOTE | 2023-01-27 18:12 | P.EN_ITS ---
Chart Event Note Date Seen: 01/27/23 Chart Event Note: 47-year-old male admitted with extensive right lower extremity DVT and bilateral pulmonary emboli is transferred to hospitalist, Dr. Dominguez, at [facility]. I also spoke with interventional radiologist who agrees to accept the patient with planned thrombectomy for extensive DVT.
[2023-01-27] MEDS: HEPARIN 5,000 UNIT/0.5 ML INJ 3600 UNIT IVP (19:22)
--- NOTE | 2023-01-27 21:11 | PC.NURSE ---
Shift/ Transfer [id number]- Patient denies chest pain or SOB. O2 is ~94% while awake, on RA. Right leg is warm and slightly swollen. He is up independently. He leaves via EMS transport to [facility] at 2044. All belongings leave with patient or his . Heparin drip continues.
== END 2023-01-27 20:45 | disposition short-term general hospital (02) | DRG 299 ==
LOC: ED 08:09 → MEDSURG 14:06
PROVIDERS: Admitting Provider Family Medicine; Emergency Provider Emergency Medicine; PCP Family Medicine; Visit Provider Family Medicine
DX: I82.4Z1 Acute embolism and thrombosis of unspecified deep veins of right distal lower extremity (principal); I26.99 Other pulmonary embolism without acute cor pulmonale; D68.51 Activated protein C resistance; Z68.41 Body mass index [BMI] 40.0-44.9, adult; E66.01 Morbid (severe) obesity due to excess calories; E11.9 Type 2 diabetes mellitus without complications; Z79.4 Long term (current) use of insulin; G47.33 Obstructive sleep apnea (adult) (pediatric); Z79.82 Long term (current) use of aspirin; I10 Essential (primary) hypertension; Z86.718 Personal history of other venous thrombosis and embolism
CPT/HCPCS: 36415; 71275; 74177; 80048; 82962; 84484; 85025; 85027; 85610; 85730; 87631; 93971; 99283; 99285; A9270; J1644; Q9967

== ENCOUNTER 2023-01-27 20:33 | Outpatient (CLI) | payer OTHER, SELFPAY | END 2023-01-27 20:34 | disposition home or self-care (01) | LOC: AMB 01-30 09:39 | PROVIDERS: PCP Family Medicine; Visit Provider Family Medicine | DX: I82.401 Acute embolism and thrombosis of unspecified deep veins of right lower extremity (principal); I26.99 Other pulmonary embolism without acute cor pulmonale | CPT/HCPCS: A0425; A0434 ==

== ENCOUNTER 2023-02-07 08:16 | Outpatient (REF) | payer OTHER, SELFPAY | END 2023-02-07 08:17 | disposition home or self-care (01) | LOC: NFLDREF 08:16 | PROVIDERS: PCP Family Medicine; Referring Provider Family Medicine; Visit Provider Family Medicine | DX: D68.51 Activated protein C resistance (principal); I82.409 Acute embolism and thrombosis of unspecified deep veins of unspecified lower extremity | CPT/HCPCS: 85610 ==

== ENCOUNTER 2023-02-12 08:40 | Outpatient (CLI) | payer OTHER, SELFPAY | END 2023-02-12 08:41 | disposition home or self-care (01) | LOC: NFLDREF 02-14 20:58 | PROVIDERS: PCP Family Medicine; Referring Provider Family Medicine; Visit Provider Family Medicine | DX: Z79.01 Long term (current) use of anticoagulants (principal) | CPT/HCPCS: 85610 ==

== ENCOUNTER 2023-02-16 13:13 | Outpatient (CLI) | payer OTHER, SELFPAY | END 2023-02-16 13:14 | disposition home or self-care (01) | LOC: NFLDREF 02-19 09:31 | PROVIDERS: PCP Family Medicine; Referring Provider Family Medicine; Visit Provider Family Medicine | DX: Z79.01 Long term (current) use of anticoagulants (principal) | CPT/HCPCS: 85610 ==

== ENCOUNTER 2023-02-21 08:02 | Outpatient (CLI) | payer OTHER, SELFPAY | END 2023-02-21 08:03 | disposition home or self-care (01) | LOC: NFLDREF 02-22 06:18 | PROVIDERS: PCP Family Medicine; Referring Provider Family Medicine; Visit Provider Family Medicine | DX: I82.409 Acute embolism and thrombosis of unspecified deep veins of unspecified lower extremity (principal) | CPT/HCPCS: 85610 ==

== ENCOUNTER 2023-09-24 11:25 | Outpatient (CLI) | payer OTHER, SELFPAY ==
[2023-09-24 13:48] LABS: Chloride* 101 mmol/L (96-114); Sodium* 135 mmol/L (135-149)
[2023-09-24 13:49] LABS: Potassium* 4.8 mmol/L (3.6-5.1)
[2023-09-24 13:51] LABS: Alanine Aminotransferase* 35 U/L (4-50); Anion Gap 5 mEq/L (7-15); Blood Urea Nitrogen* 14 mg/dL (5-24); Carbon Dioxide* 29 mmol/L (20-32); Cholesterol* 191 mg/dL (90-199); Creatinine* 0.7 mg/dL (0.5-1.5); Estimated Glomerular Filt Rate 114 ml/min
[2023-09-24 13:52] LABS: Calcium* 9.2 mg/dL (8.4-10.6); Glucose* 177 mg/dL (60-115); HDL Cholesterol* 41 mg/dL (>=40); LDL Cholesterol Calculated 111 mg/dL (<100); Triglycerides* 195 mg/dL (40-149)
== END 2023-09-24 11:26 | disposition home or self-care (01) ==
PROVIDERS: PCP Family Medicine; Visit Provider Family Medicine
DX: I10 Essential (primary) hypertension (principal); E78.2 Mixed hyperlipidemia; E11.9 Type 2 diabetes mellitus without complications; Z79.4 Long term (current) use of insulin
CPT/HCPCS: 80048; 80061; 84460

== ENCOUNTER 2024-09-26 00:21 | Outpatient (CLI) | payer BC, SELFPAY | END 2024-09-26 00:22 | disposition home or self-care (01) | PROVIDERS: PCP Family Medicine; Visit Provider Family Medicine | DX: E11.9 Type 2 diabetes mellitus without complications (principal); E78.2 Mixed hyperlipidemia; I10 Essential (primary) hypertension | CPT/HCPCS: 80048; 80061 ==